=== PATIENT | male | born 2000 | race Caucasian/White ===

== ENCOUNTER 2023-03-11 19:00 | Emergency (ER) | payer OTHER ==
[~2023-03-11] VITALS: Ht 180.3 cm; Wt 102.1 kg
[2023-03-11 19:08] VITALS: BP_SYST 150; PULSE 96; RESP 20; TEMP 97; O2SAT 97
[2023-03-11] MEDS ORDERED: ONDANSETRON 4 MG ODT TAB PO ONE (19:30)
[2023-03-11 19:43] LABS: BASOPHILS # (AUTO) 0.1 K/uL (0.0-0.2); BASOPHILS % (AUTO) 0.7 % (0.0-2.0); EOSINOPHILS % (AUTO) 0.3 % (0.0-4.0); HEMATOCRIT 47.4 % (36-54); HEMOGLOBIN 15.9 g/dL (14.0-18.0); LYMPHOCYTES # (AUTO) 1.5 K/uL (1.0-5.5); LYMPHOCYTES % (AUTO) 13.1 % (20.5-51.5); MEAN CORPUSCULAR HEMOGLOBIN 30 pg (27-31); MEAN CORPUSCULAR HGB CONC 34 % (32-36); MEAN CORPUSCULAR VOLUME 89 fL (79.0-98.0); MONOCYTES # (AUTO) 0.4 K/uL (0.0-1.0); MONOCYTES % (AUTO) 3.5 % (1.7-9.3); NEUTROPHILS # (AUTO) 9.2 K/uL (1.8-7.7); NEUTROPHILS % (AUTO) 82.4 % (40.0-70.0); PLATELET COUNT (AUTO) 249 K/uL (130-430); RED BLOOD CELL COUNT(AUTO) 5.35 MIL/uL (4.2-6.2); RED CELL DISTRIBUTION WIDTH 13.6 % (9.0-15.0); WHITE BLOOD COUNT (AUTO) 11.2 K/uL (4.8-10.8)
[2023-03-11 20:02] LABS: ALANINE AMINOTRANSFERASE 41 U/L (12-78); ALBUMIN 4.5 g/dL (3.4-4.8); ANION GAP 12 (5-15); ASPARTATE AMINOTRANSFERASE 20 U/L (10-37); BILIRUBIN,DIRECT 0.1 mg/dL (0.0-0.3); CALCIUM 8.6 mg/dL (8.4-11.0); CARBON DIOXIDE 25 mmol/L (23-29); CHLORIDE 105 mmol/L (98-107); CREATININE 1.03 mg/dL (0.55-1.30); GFR AFRICAN AMERICAN 114 mL/min (>90); GFR NON AFRICAN-AMERICAN 94 mL/min (>90); GLUCOSE 101 mg/dL (74-106); LIPASE 20 U/L (16-77); POTASSIUM 4.1 mmol/L (3.5-5.1); SODIUM SERUM 142 mmol/L (136-145); TOTAL BILIRUBIN 0.4 mg/dL (0.0-1.0); TOTAL PROTEIN, SERUM 7.9 g/dL (6.4-8.3); UREA NITROGEN, BLOOD 17 mg/dL (8-21)
[2023-03-11 20:03] LABS: ALCOHOL, BLOOD < 3 mg/dL (<10)
[2023-03-11] MEDS ORDERED: OMEPRAZOLE Non-Formulary 20 MG CAPSULE.DR PO ONE (21:00)
[2023-03-11] MEDS ORDERED: FAMOTIDINE 20 MG TABLET PO ONE (21:30)
[2023-03-11] MEDS ORDERED: ONDA-8 TL (21:54)
[2023-03-11] MEDS ORDERED: OMEP40CA20 PO (21:54)
[2023-03-11 22:08] VITALS: BP_SYST 139; PULSE 65; RESP 20; TEMP 98; O2SAT 96
== END 2023-03-11 22:52 | disposition home or self-care (01) ==
LOC: SED 19:00
DX: K29.20 Alcoholic gastritis without bleeding (principal); R10.13 Epigastric pain; Z79.899 Other long term (current) drug therapy
CPT/HCPCS: 99283; 80076; 80048; 83690; 85025; 36415; G0482; Q0162